=== PATIENT | male | born 2000 | race Caucasian/White ===

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

== ENCOUNTER 2019-05-16 16:30 | Emergency (ER) | payer OTHER ==
[~2019-05-16] VITALS: Ht 180.3 cm; Wt 54.4 kg
[2019-05-16 16:30] VITALS: BP 123/57
[2019-05-16] MEDS ORDERED: IV NORMAL SALINE 1,000ML 1,000 ML IV ONE (17:00)
[2019-05-16] MEDS ORDERED: ONDANSETRON PF 4 MG/2 ML VIAL. IV ONE (17:00)
--- NOTE | 2019-05-16 17:05 | PHYS DOC ---
Past History Past Medical History: Asthma, Migraines, Other (MIRLANDE LITTLE DO) Past Medical History: GERD (RYA NORRIS MD) Past Surgical History: Appendectomy (MIRLANDE LITTLE DO) Smoking: Less than 1pk/day Alcohol Use: None Drug Use: None (MIRLANDE LITTLE DO) Adult General Chief Complaint Chief Complaint: ABDOMINAL PAIN HPI HPI 18-year-old male presents with abdominal pain. Patient has intermittent right upper quadrant pain for the last 3 or 4 days. It started for no particular reason. It is a cramping sensation that is mild to moderate in intensity. The patient's has as reflux at baseline, but does not take any medications. He has noticed the pain is worse with eating. Most of the time when he vomits, there is just saliva and stomach acid. He had blood-tinged vomit twice. He denies fever or chills. He has no diarrhea. No one else in the house is sick. (MIRLANDE LITTLE DO) Review of Systems Review of Systems Constitutional: Denies fever or chills [] Eyes: Denies change in visual acuity, redness, or eye pain [] HENT: Denies nasal congestion or sore throat [] Respiratory: Denies cough or shortness of breath [] Cardiovascular: No additional information not addressed in HPI [] GI: Right upper quadrant abdominal pain, nausea, vomiting. Denies bloody stools or diarrhea [] : Denies dysuria or hematuria [] Musculoskeletal: Denies back pain or joint pain [] Integument: Denies rash or skin lesions [] Neurologic: Denies headache, focal weakness or sensory changes [] Endocrine: Denies polyuria or polydipsia [] All other systems were reviewed and found to be within normal limits, except as documented in this note. (MIRLANDE LITTLE DO) Family History Family History Multiple family members have had cholecystitis and removal of their gallbladders starting age 20's (RAY NORRIS MD) Current Medications Current Medications Current Medications Medications (Trade) Dose Ordered Sig/Elaine Start Time Stop Time Status Last Admin Dose Admin Ondansetron HCl (Zofran) 4 mg 1X ONCE 05/16/19 17:00 05/16/19 17:01 Sodium Chloride 1,000 ml @ 1,000 mls/hr 1X ONCE 05/16/19 17:00 05/16/19 17:59 (MIRLANDE LITTLE DO) Allergies Allergies Allergies Coded Allergies Type Severity Reaction Last Updated Verified fentanyl Allergy Unknown 05/12/18 Yes hydrocodone Allergy Unknown 05/12/18 Yes latex Allergy Unknown 05/12/18 Yes lidocaine Allergy Unknown 05/12/18 Yes morphine Allergy Unknown 05/12/18 Yes (MIRLANDE LITTLE DO) Physical Exam Physical Exam Constitutional: Well developed, well nourished, no acute distress, non-toxic appearance. [] HENT: Normocephalic, atraumatic, bilateral external ears normal, oropharynx moist, no oral exudates, nose normal. [] Eyes: PERRLA, EOMI, conjunctiva normal, no discharge. [] Neck: Normal range of motion, no tenderness, supple, no stridor. [] Cardiovascular:Heart rate regular rhythm, no murmur [] Lungs & Thorax: Bilateral breath sounds clear to auscultation [] Abdomen: Bowel sounds normal, soft, RUQ tenderness, no masses, no pulsatile masses. [] Skin: Warm, dry, no erythema, no rash. [] Back: No tenderness, no CVA tenderness. [] Extremities: No tenderness, no cyanosis, no clubbing, ROM intact, no edema. [] Neurologic: Alert and oriented X 3, normal motor function, normal sensory function, no focal deficits noted. [] Psychologic: Affect normal, judgement normal, mood normal. [] (MIRLANDE LITTLE DO) Physical Exam Reexam change- patient localizes pain to epigastric and right upper quadrant. Has rebound to right upper quadrant. Does have some radiation of pain to right shoulder blade. No psoas sign. (RAY NORRIS MD) Current Patient Data Vital Signs Vital Signs Date Time Temp Pulse Resp B/P (MAP) Pulse Ox O2 Delivery O2 Flow Rate FiO2 05/16/19 16:30 97 Room Air 05/16/19 16:30 98.8 80 20 (MIRLANDE LITTLE DO) EKG EKG [] (MIRLANDE LITTLE DO) Radiology/Procedures Radiology/Procedures [] (MIRLANDE LITTLE DO) Radiology/Procedures [address] [address] IMAGING REPORT Signed PATIENT: CATHERINE MALHOTRA ACCOUNT: [id number] : 2000 LOCATION: ER AGE: 18 SEX: M EXAM STATUS: REG ER ORD. PHYSICIAN: MIRLANDE LITTLE DO REASON: RUQ pain PROCEDURE: CT ABD PELV W/ IV CONTRST ONLY CT ABD PELV W/ IV CONTRST ONLY Indication: Right upper quadrant pain Technique: Postcontrast CT imaging was performed of the abdomen pelvis, multiplanar reconstruction images submitted. No oral contrast was given. One or more of the following individualized dose reduction techniques were utilized for this examination: 1. Automated exposure control 2. Adjustment of the mA and/or kV according to patient size 3. Use of iterative reconstruction technique. Comparison: August 25, 2010 Findings: There is no significant abnormality of the limited visualized lung bases. No focal abnormality is identified of the liver, pancreas, spleen. Gallbladder is present, circumferential wall enhancement and possible trace pericholecystic fluid. There is no adrenal nodularity. Both kidneys enhance, no hydronephrosis. Accurate evaluation of bowel is limited without oral contrast. Bowel is not considered significantly dilated. There is no free fluid or free air. There has been interval appendectomy. IMPRESSION: 1. There is nonspecific gallbladder wall enhancement and questionable trace pericholecystic fluid, could be seen with cholecystitis in the appropriate clinical setting. Electronically signed by: Jalyn Price MD (05/16/2019 6:07 PM) [facility] DICTATED AND SIGNED BY: JALYN PRICE MD DATE: 05/16/191806 (RAY NORRIS MD) Course & Med Decision Making Course & Med Decision Making Pertinent Labs and Imaging studies reviewed. (See chart for details) The patient's labs are unremarkable. His CT scan is pending. I have given him 4 mg of Zofran and saline. I'm signing the patient out to Dr. Norris at 1800. He will determine final disposition. [] (MIRLANDE LITTLE DO) Course & Med Decision Making Re-exam shift change. Pt. still having 7/10 epigastric and Rt. upper quadrant pain. Rebound to Rt. upper. Old surgery scar. Pt. declines rectal at this time. Pain off and on weeks. Much more severe to day after 'hot pocket pizza meal'. Does have some radiation to Rt shoulder blade. Pt. transfer to Dr. Gilmore at [facility]. Surgery consult for Cholecystitis. Discussed presentation, testing and tx plan with Dr. Gilmore and Dr. Ascencio. Impression: 1. Rt upper and epigastric abdomen pain 2. Cholecystitis (RAY NORRIS MD) Dragon Disclaimer Dragon Disclaimer This electronic medical record was generated, in whole or in part, using a voice recognition dictation system. (MIRLANDE LITTLE DO) Departure Departure: Referrals: MAGNO MCELROY (PCP) Discharge Summary Visit Information Final Diagnosis Problems Medical Problems: (1) Cholecystitis Status: Acute (2) Dyspnea Status: Acute (RAY NORRIS MD) Brief Hospital Course Allergies Allergies Coded Allergies Type Severity Reaction Last Updated Verified fentanyl Allergy Unknown 05/12/18 Yes hydrocodone Allergy Unknown 05/12/18 Yes latex Allergy Unknown 05/12/18 Yes lidocaine Allergy Unknown 05/12/18 Yes morphine Allergy Unknown 05/12/18 Yes Vital Signs Vital Signs Date Time Temp Pulse Resp B/P (MAP) Pulse Ox O2 Delivery O2 Flow Rate FiO2 05/16/19 16:30 97 Room Air 05/16/19 16:30 98.8 80 20 Lab Results Laboratory Tests Test 05/16/19 16:54 White Blood Count 7.5 x10^3/uL (4.0-11.0) Red Blood Count 4.59 x10^6/uL (4.30-5.70) Hemoglobin 13.8 g/dL (13.0-17.5) Hematocrit 40.9 % (39.0-53.0) Mean Corpuscular Volume 89 fL (79-100) Mean Corpuscular Hemoglobin 30 pg (25-35) Mean Corpuscular Hemoglobin Concent 34 g/dL (31-37) Red Cell Distribution Width 12.9 % (11.5-14.5) Platelet Count 249 x10^3/uL (140-400) Neutrophils (%) (Auto) 59 % (31-73) Lymphocytes (%) (Auto) 32 % (24-48) Monocytes (%) (Auto) 7 % (0-9) Eosinophils (%) (Auto) 1 % (0-3) Basophils (%) (Auto) 1 % (0-3) Neutrophils # (Auto) 4.4 x10^3uL (1.8-7.7) Lymphocytes # (Auto) 2.4 x10^3/uL (1.0-4.8) Monocytes # (Auto) 0.5 x10^3/uL (0.0-1.1) Eosinophils # (Auto) 0.1 x10^3/uL (0.0-0.7) Basophils # (Auto) 0.0 x10^3/uL (0.0-0.2) Prothrombin Time 11.1 SEC (9.4-11.4) Prothromb Time International Ratio 1.1 (0.9-1.1) Activated Partial Thromboplast Time 26 SEC (23-33) Sodium Level 140 mmol/L (136-145) Potassium Level 3.7 mmol/L (3.5-5.1) Chloride Level 104 mmol/L (98-107) Carbon Dioxide Level 28 mmol/L (21-32) Anion Gap 8 (6-14) Blood Urea Nitrogen 8 mg/dL (8-26) Creatinine 0.7 mg/dL (0.7-1.3) Estimated GFR (Cockcroft-Gault) 145.3 BUN/Creatinine Ratio 11 (6-20) Glucose Level 92 mg/dL (70-99) Calcium Level 8.9 mg/dL (8.5-10.1) Total Bilirubin 0.3 mg/dL (0.2-1.0) Aspartate Amino Transf (AST/SGOT) 21 U/L (15-37) Alanine Aminotransferase (ALT/SGPT) 44 U/L (16-63) Alkaline Phosphatase 73 U/L (46-116) Total Protein 7.2 g/dL (6.4-8.2) Albumin 4.2 g/dL (3.4-5.0) Albumin/Globulin Ratio 1.4 (1.0-1.7) Lipase 67 U/L (73-393) Brief Hospital Course Mr. Malhotra is a 18 old male who presented with cholecystitis. Transferred to [facility] under the care Dr. Gilmore and consult with Dr. Ascencio. (RAY NORRIS MD) Discharge Information Condition at Discharge: Stable Disposition/Orders: D/C to Another Facility Dischare Medications Current Medications Sodium Chloride 1,000 ml @ 1,000 mls/hr 1X ONCE IV Last administered on 05/16/19at 17:04; Start 05/16/19 at 17:00; Stop 05/16/19 at 17:59; Status DC Ondansetron HCl (Zofran) 4 mg 1X ONCE IV Last administered on 05/16/19at 17:03; Start 05/16/19 at 17:00; Stop 05/16/19 at 17:01; Status DC Iohexol (Omnipaque 300 Mg/ml) 75 ml 1X ONCE IV ; Start 05/16/19 at 17:30; Stop 05/16/19 at 17:31; Status DC Famotidine (Pepcid Vial) 20 mg 1X ONCE IVP Last administered on 05/16/19at 18:44; Start 05/16/19 at 18:45; Stop 05/16/19 at 18:46; Status DC Magnesium Hydroxide (Milk Of Magnesia) 2,400 mg 1X ONCE PO Last administered on 05/16/19 18:45; Start 05/16/19 at 18:45; Stop 05/16/19 at 18:46; Status DC Ketorolac Tromethamine (Toradol 30mg Vial) 30 mg 1X ONCE IV Last administered on 05/16/19at 18:44; Start 05/16/19 at 19:00; Stop 05/16/19 at 19:01; Status DC Ceftriaxone Sodium 1 gm/ Sodium Chloride 50 ml @ 100 mls/hr 1X ONCE IV Last administered on 05/16/19at 18:45; Start 05/16/19 at 18:30; Stop 05/16/19 at 18:59; Status DC Metronidazole 100 ml @ 100 mls/hr 1X ONCE IV Last administered on 05/16/19at 18:45; Start 05/16/19 at 18:30; Stop 05/16/19 at 19:29; Status DC Sodium Chloride 50 ml @ As Directed STK-MED ONCE .ROUTE ; Start 05/16/19 at 18:40; Stop 05/16/19 at 18:41; Status DC Ceftriaxone Sodium (Rocephin) 1 gm STK-MED ONCE .ROUTE ; Start 05/16/19 at 18:41; Stop 05/16/19 at 18:42; Status DC Active Scripts Active Valium (Diazepam) 5 Mg Tablet 5 Mg PO TID Percocet 5-325 Mg Tablet (Oxycodone Hcl/Acetaminophen) 1 Each Tablet 1 Each PO QID Zofran Odt (Ondansetron) 8 Mg Tab.rapdis 8 Mg PO QIDPRN PRN Zofran Odt (Ondansetron) 4 Mg Tab.rapdis 4 Mg PO Q6HRS (RAY NORRIS MD) Dragon Disclaimer This chart was dictated in whole or in part using Voice Recognition software in a busy, high-work load, and often noisy Emergency Department environment. It may contain unintended and wholly unrecognized errors or omissions. (RAY NORRIS MD) MIRLANDE LITTLE DO May 16, 2019 17:05 RAY NORRIS MD May 16, 2019 18:15
[2019-05-16 17:13] LABS: BASO % 1 % (0-3); EOS # 0.1 x10^3/uL (0.0-0.7); EOS % 1 % (0-3); HEMATOCRIT 40.9 % (39.0-53.0); HEMOGLOBIN 13.8 g/dL (13.0-17.5); LYMPH # 2.4 x10^3/uL (1.0-4.8); LYMPH % 32 % (24-48); MEAN CORPUSCULAR HEMOGLOBIN 30 pg (25-35); MEAN CORPUSCULAR HGB CONC 34 g/dL (31-37); MEAN CORPUSCULAR VOLUME 89 fL (79-100); MONO # 0.5 x10^3/uL (0.0-1.1); MONO % 7 % (0-9); NEUT # 4.4 x10^3uL (1.8-7.7); NEUT % 59 % (31-73); PLATELET COUNT 249 x10^3/uL (140-400); RED BLOOD COUNT 4.59 x10^6/uL (4.30-5.70); RED CELL DISTRIBUTION WIDTH 12.9 % (11.5-14.5); WHITE BLOOD COUNT 7.5 x10^3/uL (4.0-11.0)
[2019-05-16 17:21] LABS: ALBUMIN 4.2 g/dL (3.4-5.0); ALBUMIN/GLOBULIN RATIO 1.4 (1.0-1.7); CALCIUM 8.9 mg/dL (8.5-10.1); CREATININE 0.7 mg/dL (0.7-1.3); GFR 145.3; POTASSIUM 3.7 mmol/L (3.5-5.1); TOTAL BILIRUBIN 0.3 mg/dL (0.2-1.0); TOTAL PROTEIN 7.2 g/dL (6.4-8.2)
[2019-05-16] MEDS ORDERED: IOHEXOL 300 MG/ML 75 ML VIAL. IV ONE (17:30)
--- NOTE | 2019-05-16 18:09 | RAD ---
CT ABD PELV W/ IV CONTRST ONLY Indication: Right upper quadrant pain Technique: Postcontrast CT imaging was performed of the abdomen pelvis, multiplanar reconstruction images submitted. No oral contrast was given. One or more of the following individualized dose reduction techniques were utilized for this examination: 1. Automated exposure control 2. Adjustment of the mA and/or kV according to patient size 3. Use of iterative reconstruction technique. Comparison: August 25, 2010 Findings: There is no significant abnormality of the limited visualized lung bases. No focal abnormality is identified of the liver, pancreas, spleen. Gallbladder is present, circumferential wall enhancement and possible trace pericholecystic fluid. There is no adrenal nodularity. Both kidneys enhance, no hydronephrosis. Accurate evaluation of bowel is limited without oral contrast. Bowel is not considered significantly dilated. There is no free fluid or free air. There has been interval appendectomy. IMPRESSION: 1. There is nonspecific gallbladder wall enhancement and questionable trace pericholecystic fluid, could be seen with cholecystitis in the appropriate clinical setting. Electronically signed by: Salas Price MD (05/16/2019 6:07 PM) [facility]
[2019-05-16] MEDS ORDERED: IV NORMAL SALINE 50ML 50 ML ONE (18:40)
[2019-05-16] MEDS ORDERED: cefTRIAXone SODIUM 1 GM VIAL ONE (18:41)
[2019-05-16] MEDS ORDERED: FAMOTIDINE 20 MG/2 ML VIAL IVP ONE (18:45)
[2019-05-16] MEDS ORDERED: MAGNESIUM HYDROXIDE 2,400 MG/30 ML ORAL.SUSP. PO ONE (18:45)
[2019-05-16] MEDS ORDERED: KETOROLAC 30 MG/ML VIAL. IV ONE (19:00)
--- NOTE | 2019-05-16 19:30 | RAD ---
ACUTE ABDOMEN SERIES History: Cholecystitis, shortness of breath Comparison: June 03, 2012 abdomen radiographs and October 20, 2018 chest radiograph Findings: Single supine and single upright AP views of abdomen and single view of the chest are submitted. There is no infiltrate, pleural fluid, pneumothorax. Heart size is stable. No free air is identified. There is an overall nonobstructive bowel gas pattern. There is contrast in the urinary bladder and right renal collecting system. Impression: 1. There is an overall nonobstructive bowel gas pattern. Electronically signed by: Salas Price MD (05/16/2019 7:27 PM) [facility]
== END 2019-05-16 19:35 | disposition short-term general hospital (02) ==
LOC: ER 16:30
DX: K81.9 Cholecystitis, unspecified (principal); R06.00 Dyspnea, unspecified; R11.2 Nausea with vomiting, unspecified; K21.9 Gastro-esophageal reflux disease without esophagitis; F17.200 Nicotine dependence, unspecified, uncomplicated; Z90.49 Acquired absence of other specified parts of digestive tract; Z88.5 Allergy status to narcotic agent; Z91.040 Latex allergy status; Z88.4 Allergy status to anesthetic agent; Z88.8 Allergy status to other drugs, medicaments and biological substances
CPT/HCPCS: 36415; 74022; 74177; 80053; 83690; 85025; 85610; 85730; 96361; 96365; 96375; 99285; J0696; J1885; J2405; J3490; J7030

== ENCOUNTER 2019-07-05 13:25 | Emergency (ER) | payer OTHER ==
[2019-07-05 13:47] VITALS: BP 123/69
[2019-07-05] MEDS ORDERED: DICL50TA4 PO (14:35)
--- NOTE | 2019-07-05 14:35 | PHYS DOC ---
Past History Past Medical History: Stroke Past Surgical History: Appendectomy, Cholecystectomy Smoking: Less than 1pk/day Alcohol Use: None Drug Use: None Adult General Chief Complaint Chief Complaint: FOOT INJURY PAIN [facility] HPI Patient is a 18-year-old male who presents with complaint of right foot pain after he stepped on a [place] earlier this afternoon. Patient states that when he stepped on the [place] that he jumped and landed on his foot causing pain. He indicates that he has fractured his fifth metatarsal in the past. He rates pain as moderate and states the pain is worsened with weightbearing. He states that injury occurred this morning.[] Review of Systems Review of Systems Constitutional: Denies fever or chills [] Respiratory: Denies cough or shortness of breath [] Cardiovascular: No additional information not addressed in HPI [] Musculoskeletal: Positive right foot pain [] Integument: Denies rash or skin lesions [] Allergies Allergies Allergies Coded Allergies Type Severity Reaction Last Updated Verified fentanyl Allergy Unknown 05/12/18 Yes hydrocodone Allergy Unknown 05/12/18 Yes latex Allergy Unknown 05/12/18 Yes lidocaine Allergy Unknown 05/12/18 Yes morphine Allergy Unknown 05/12/18 Yes Physical Exam Physical Exam Constitutional: Well developed, well nourished, no acute distress, non-toxic appearance. [] Cardiovascular:Heart rate regular rhythm, no murmur [] Lungs & Thorax: Bilateral breath sounds clear to auscultation [] Extremities: Examination of right foot demonstrates tenderness to palpation around the mid to proximal fifth metatarsal with very mild soft tissue swelling present. [] Current Patient Data Vital Signs Vital Signs Date Time Temp Pulse Resp B/P (MAP) Pulse Ox O2 Delivery O2 Flow Rate FiO2 07/05/19 13:47 98.2 84 18 98 Room Air EKG EKG [] Radiology/Procedures Radiology/Procedures [] Impressions: PROCEDURE: FOOT RIGHT 3V FOOT RIGHT 3V DATE: 07/05/2019 2:16 PM INDICATION: Foot injury COMPARISON: 06/01/2018. FINDINGS: Bones: There is no evidence of acute fracture or dislocation. Remote healed fifth metatarsal fracture. Joints: The joint spaces are normal. Miscellaneous: No focal soft tissue swelling. IMPRESSION: No evidence of acute fracture. Electronically signed by: Salas Narayan MD (07/05/2019 2:37 PM) [facility] Course & Med Decision Making Course & Med Decision Making Pertinent Labs and Imaging studies reviewed. (See chart for details) [] Dragon Disclaimer Dragon Disclaimer This electronic medical record was generated, in whole or in part, using a voice recognition dictation system. Departure Departure: Impression: Primary Impression: Foot sprain Disposition: HOME, SELF-CARE Condition: STABLE Referrals: MAGNO MCELROY (PCP) Patient Instructions: Foot Sprain Scripts Diclofenac Sodium (DICLOFENAC SODIUM) 50 Mg Tablet.dr 1 TAB PO BID PRN for PAIN, #20 TAB Prov: OTONIEL DAVISON Jr. DO 07/05/19 Problem Qualifiers Primary Impression: Foot sprain Encounter type: initial encounter Laterality: right Qualified Codes: S93.601A - Unspecified sprain of right foot, initial encounter OTONIEL DAVISON Jr. DO Jul 05, 2019 14:35
--- NOTE | 2019-07-05 14:40 | RAD ---
FOOT RIGHT 3V DATE: 07/05/2019 2:16 PM INDICATION: Foot injury COMPARISON: 06/01/2018. FINDINGS: Bones: There is no evidence of acute fracture or dislocation. Remote healed fifth metatarsal fracture. Joints: The joint spaces are normal. Miscellaneous: No focal soft tissue swelling. IMPRESSION: No evidence of acute fracture. Electronically signed by: Salas Narayan MD (07/05/2019 2:37 PM) [id number]
== END 2019-07-05 14:42 | disposition home or self-care (01) ==
LOC: ER 13:25
DX: S93.601A Unspecified sprain of right foot, initial encounter (principal); F17.200 Nicotine dependence, unspecified, uncomplicated; Z86.73 Personal history of transient ischemic attack (TIA), and cerebral infarction without residual deficits; Z88.5 Allergy status to narcotic agent; Z88.4 Allergy status to anesthetic agent; Z88.8 Allergy status to other drugs, medicaments and biological substances; Z91.040 Latex allergy status; W22.8XXA Striking against or struck by other objects, initial encounter; Y93.89 Activity, other specified; Y92.89 Other specified places as the place of occurrence of the external cause; Y99.8 Other external cause status
CPT/HCPCS: 73630; 99284

== ENCOUNTER 2019-08-05 19:45 | Emergency (ER) | payer OTHER ==
[~2019-08-05] VITALS: Ht 180.3 cm; Wt 61.2 kg
[~2019-08-05 19:45] MED LIST changes: +DICL50TA4 PO
[2019-08-05] MEDS: IV NORMAL SALINE 1,000ML 1,000 ML IV ONE (20:44)
--- NOTE | 2019-08-05 21:32 | PHYS DOC ---
Past History Past Medical History: Migraines, TIA Past Surgical History: Appendectomy, Cholecystectomy Smoking: Less than 1pk/day Additional Smoking Information: 1/2 TO PACK/DAY Alcohol Use: None Drug Use: None Adult General Chief Complaint Chief Complaint: HEADACHE HPI HPI Patient is a 18 year old male who presents with complaint of migraine headache. Patient notes that his symptoms started approximately one week ago and have been continuous since onset. States he has been taking Excedrin Migraine at home with no significant relief in symptoms. Notes nausea and light sensitivity. Notes that the headache is frontal. Denies any associated unilateral weakness, vision loss, or difficulty with speech or swallowing. States that he frequently has migraine headaches and has been in the emergency department in the past. States that he has received a "cocktail" for treatment of his symptoms which typically includes Benadryl and this has helped him in the past. Denies any unusual symptoms associated with this headache currently.[] Review of Systems Review of Systems Constitutional: Denies fever or chills [] Eyes: Denies change in visual acuity, redness, or eye pain [] HENT: Photophobia, denies nasal congestion or sore throat [] Respiratory: Denies cough or shortness of breath [] Cardiovascular: Denies chest pain or edema[] GI: Nausea, denies abdominal pain, bloody stools or diarrhea [] : Denies dysuria or hematuria [] Musculoskeletal: Denies back pain or joint pain [] Integument: Denies rash or skin lesions [] Neurologic: Headache, denies focal weakness or sensory changes [] All other systems were reviewed and found to be within normal limits, except as documented in this note. Current Medications Current Medications Current Medications Medications (Trade) Dose Ordered Sig/Elaine Start Time Stop Time Status Last Admin Dose Admin Sodium Chloride 1,000 ml @ 1,000 mls/hr 1X ONCE 08/05/19 20:45 08/05/19 21:44 08/05/19 20:44 1,000 MLS/HR Allergies Allergies Allergies Coded Allergies Type Severity Reaction Last Updated Verified fentanyl Allergy Unknown 05/12/18 Yes hydrocodone Allergy Unknown 05/12/18 Yes latex Allergy Unknown 05/12/18 Yes lidocaine Allergy Unknown 05/12/18 Yes morphine Allergy Unknown 05/12/18 Yes Physical Exam Physical Exam Constitutional: Alert, afebrile, appears mild to moderate discomfort. [] HENT: Normocephalic, atraumatic, bilateral external ears normal, oropharynx moist, no oral exudates, nose normal. [] Eyes: PERRLA, EOMI, photophobia present, conjunctiva normal, no discharge. [] Neck: Normal range of motion, no tenderness, supple, no stridor. [] Cardiovascular:Heart rate regular rhythm, no murmur [] Lungs & Thorax: Bilateral breath sounds clear to auscultation [] Abdomen: Bowel sounds normal, soft, no tenderness, no masses, no pulsatile masses. [] Skin: Warm, dry, no erythema, no rash. [] Back: No tenderness, no CVA tenderness. [] Extremities: No tenderness, no cyanosis, no clubbing, ROM intact, no edema. [] Neurologic: Alert and oriented X 3, normal motor function, normal sensory function, no focal deficits noted. [] Current Patient Data Vital Signs Vital Signs Date Time Temp Pulse Resp B/P (MAP) Pulse Ox O2 Delivery O2 Flow Rate FiO2 08/05/19 19:50 98.6 84 20 99 Room Air Lab Results Not performed EKG EKG Not performed[] Radiology/Procedures Radiology/Procedures Not performed[] Course & Med Decision Making Course & Med Decision Making Pertinent Labs and Imaging studies reviewed. (See chart for details) Patient was treated with IV fluids, Toradol, Compazine, and Benadryl in the emergency department. Patient states his headache symptoms have resolved and he would like to go home at this time. Prescribed Fioricet and Zofran for treatment of headaches as needed and referred patient to Dr. Mak of neurology for outpatient follow-up in 5-7 days. Advised return to emergency department for any worsening symptoms. Patient was understanding and in agreement with treatment plan. Dragon Disclaimer Dragon Disclaimer This electronic medical record was generated, in whole or in part, using a voice recognition dictation system. Departure Departure: Impression: Primary Impression: Migraine headache Disposition: HOME, SELF-CARE Condition: IMPROVED Referrals: PCP,UNKNOWN (PCP) JADA MAK MD Patient Instructions: Migraine Headache Additional Instructions: Follow-up with Dr. Mak of neurology in the next 5-7 days for further evaluation of your migraine headaches. Return to the emergency department for any worsening symptoms. Scripts Ondansetron (ONDANSETRON ODT) 4 Mg Tab.rapdis 1 TAB PO PRN Q6-8HRS PRN for NAUSEA/VOMITING, #16 TAB Prov: FAISAL DURAN MD 08/05/19 Butalb/Acetaminophen/Caffeine ([id number] 50-325-40) 1 Each Tablet 1-2 EACH PO Q4-6HRS PRN for HEADACHE, #30 TAB Prov: FAISAL DURAN MD 08/05/19 Problem Qualifiers Primary Impression: Migraine headache Migraine type: unspecified Status migrainosus presence: with status migrainosus Intractability: not intractable Qualified Codes: G43.901 - Migraine, unspecified, not intractable, with status migrainosus FAISAL DURAN MD Aug 05, 2019 21:32
[2019-08-05] MEDS ORDERED: diphenhydrAMINE 50 MG/ML VIAL ONE (21:39)
[2019-08-05] MEDS ORDERED: PROCHLORPERAZINE 10 MG/2 ML VIAL. ONE (21:39)
[2019-08-05] MEDS ORDERED: KETOROLAC 30 MG/ML VIAL. ONE (21:39)
[2019-08-05] MEDS: diphenhydrAMINE 50 MG/ML VIAL IVP ONE (21:42)
[2019-08-05] MEDS: PROCHLORPERAZINE 10 MG/2 ML VIAL. IV ONE (21:43)
[2019-08-05] MEDS: KETOROLAC 30 MG/ML VIAL. IV ONE (21:46)
[2019-08-05 21:54] VITALS: BP 133/77
[2019-08-05] MEDS ORDERED: ONDA4TAB12 PO (22:20)
[2019-08-05] MEDS ORDERED: BUTA1TAB23 PO (22:20)
== END 2019-08-05 22:31 | disposition home or self-care (01) ==
LOC: ER 19:45
DX: G43.901 Migraine, unspecified, not intractable, with status migrainosus (principal); F17.200 Nicotine dependence, unspecified, uncomplicated; Z86.73 Personal history of transient ischemic attack (TIA), and cerebral infarction without residual deficits; Z88.5 Allergy status to narcotic agent; Z88.4 Allergy status to anesthetic agent; Z88.8 Allergy status to other drugs, medicaments and biological substances
CPT/HCPCS: 96374; 96375; 99284; J0780; J1200; J1885; J7030

== ENCOUNTER 2019-09-12 21:39 | Emergency (ER) | payer OTHER ==
[~2019-09-12 21:39] MED LIST changes: +BUTA1TAB23 PO; +ONDA4TAB12 PO
--- NOTE | 2019-09-12 21:41 | ED.ADGEN ---
Past History Past Medical History: Migraines, TIA Past Surgical History: Appendectomy, Cholecystectomy Smoking: Less than 1pk/day Alcohol Use: None Drug Use: None Adult General Chief Complaint Chief Complaint ". It ricci really bad when I pee... " HPI HPI Patient is a 18 year old male who presents with above hx and complaints dysuria. Hx of unprotected sex on 10/10. Pt. practice of rectal, oral and vagina. No prior hx STD. Pt. reports no history of prior problems with her primary tract infections. Patient history immunosuppression. No recent travel. No ascitic ill contacts. Review of Systems Review of Systems Constitutional: Denies fever or chills [] Eyes: Denies change in visual acuity, redness, or eye pain [] HENT: Denies nasal congestion or sore throat [] Respiratory: Denies cough or shortness of breath [] Cardiovascular: No additional information not addressed in HPI [] GI: Denies abdominal pain, nausea, vomiting, bloody stools or diarrhea [] : History of very painful dysuria Musculoskeletal: Denies back pain or joint pain [] Integument: Denies rash or skin lesions [] Neurologic: Denies headache, focal weakness or sensory changes [] Endocrine: Denies polyuria or polydipsia [] All other systems were reviewed and found to be within normal limits, except as documented in this note. Family History Family History Noncontributory Current Medications Current Medications Current Medications Medications (Trade) Dose Ordered Sig/Elaine Start Time Stop Time Status Last Admin Dose Admin Azithromycin (Zithromax) 1,000 mg 1X ONCE 09/12/19 22:15 09/12/19 22:47 DC 09/12/19 22:44 1,000 MG Ceftriaxone Sodium (Rocephin Im) 1 gm 1X ONCE 09/12/19 22:15 09/12/19 22:47 DC 09/12/19 22:42 1 GM Ceftriaxone Sodium (Rocephin) 1 gm STK-MED ONCE 09/12/19 22:48 09/12/19 22:48 DC Lidocaine HCl 20 ml STK-MED ONCE 09/12/19 22:50 09/12/19 22:50 DC Metronidazole (Flagyl) 500 mg STK-MED ONCE 09/12/19 22:47 09/12/19 22:48 DC Ondansetron HCl (Zofran Odt) 4 mg STK-MED ONCE 09/12/19 22:48 09/12/19 22:48 DC Allergies Allergies Allergies Coded Allergies Type Severity Reaction Last Updated Verified fentanyl Allergy Unknown 05/12/18 Yes hydrocodone Allergy Unknown 05/12/18 Yes latex Allergy Unknown 05/12/18 Yes lidocaine Allergy Unknown 05/12/18 Yes morphine Allergy Unknown 05/12/18 Yes Physical Exam Physical Exam Constitutional: Well developed, well nourished, moderate acute distress, non- toxic appearance. [] HENT: Normocephalic, atraumatic, bilateral external ears normal, oropharynx moist, no oral exudates, nose normal. [] Eyes: PERRLA, EOMI, conjunctiva normal, no discharge. [] Neck: Normal range of motion, no tenderness, supple, no stridor. [] Cardiovascular:Heart rate regular rhythm, no murmur [] Lungs & Thorax: Bilateral breath sounds equal apex with scattered wheezes on auscultation [] Abdomen: Bowel sounds normal, soft, no tenderness, no masses, no pulsatile masses. [] Circumcised male. Testicles descended. Has obvious erythemic me at this. Mild tenderness at suprapubic groin area. Patient declines rectal or prostate exam at this time. Old surgery scars. Skin: Warm, dry, no erythema, no rash. [] Back: No tenderness, no CVA tenderness. [] Extremities: No tenderness, no cyanosis, no clubbing, ROM intact, no edema. [] Neurologic: Alert and oriented X 3, normal motor function, normal sensory function, no focal deficits noted. [] Psychologic: Affect normal, judgement normal, mood normal. [] Current Patient Data Lab Results Laboratory Tests Test 09/12/19 21:54 Urine Collection Type Unknown Urine Color Yellow Urine Clarity Clear Urine pH 6.0 Urine Specific [place] 1.025 Urine Protein Neg (NEG-TRACE) Urine Glucose (UA) Neg mg/dL (NEG) Urine Ketones (Stick) Neg mg/dL (NEG) Urine Blood Neg (NEG) Urine Nitrite Neg (NEG) Urine Bilirubin Neg (NEG) Urine Urobilinogen Dipstick 1 mg/dL (0.2 mg/dL) Urine Leukocyte Esterase Neg (NEG) Urine RBC 0 /HPF (0-2) Urine WBC 0 /HPF (0-4) Urine Bacteria 0 /HPF (0-FEW) EKG EKG [] Radiology/Procedures Radiology/Procedures [] Course & Med Decision Making Course & Med Decision Making Pertinent Labs and Imaging studies reviewed. (See chart for details) Patient take Keflex 500 mg 3 times a day for 10 days. Patient follow up urine cultures. Patient follow-up lab results. Patient practice safe sex. Patient informed partner possible STD. Patient return if any concerns. Patient follow- up primary care. [] Final Impression Final Impression 1. Dysuria 2. Urethritis[]-suspect STD. 3. Tobacco Use Dragon Disclaimer Dragon Disclaimer This electronic medical record was generated, in whole or in part, using a voice recognition dictation system. Dragon Disclaimer This chart was dictated in whole or in part using Voice Recognition software in a busy, high-work load, and often noisy Emergency Department environment. It may contain unintended and wholly unrecognized errors or omissions. Dragon Disclaimer This chart was dictated in whole or in part using Voice Recognition software in a busy, high-work load, and often noisy Emergency Department environment. It may contain unintended and wholly unrecognized errors or omissions. RAY DARLING MD Sep 12, 2019 21:41
[2019-09-12 22:15] LABS: BACTERIA,URINE 0 /HPF (0-FEW); BILIRUBIN,URINE NEG (NEG); CLARITY,URINE CLEAR; COLOR,URINE YELLOW; GLUCOSE,URINE NEG (NEG); NITRITE,URINE NEG (NEG); RBC,URINE 0 /HPF (0-2); UROBILINOGEN,URINE 1 mg/dL (0.2 mg/dL); WBC,URINE 0 /HPF (0-4)
[2019-09-12] MEDS ORDERED: AZITHROMYCIN 250 MG TABLET. PO ONE (22:15)
[2019-09-12] MEDS ORDERED: ONDANSETRON ODT 4 MG TAB.RAPDIS PO ONE (22:15)
[2019-09-12] MEDS ORDERED: cefTRIAXone IM 1 GM VIAL IM ONE (22:15)
[2019-09-12] MEDS ORDERED: metroNIDAZOLE 500 MG TABLET PO ONE (22:15)
[2019-09-12] MEDS ORDERED: CEPH-264 PO (22:18)
[2019-09-12] MEDS ORDERED: cefTRIAXone SODIUM 1 GM VIAL ONE ×2 (22:30→22:48)
[2019-09-12] MEDS ORDERED: metroNIDAZOLE 500 MG TABLET ONE (22:47)
[2019-09-12] MEDS ORDERED: ONDANSETRON ODT 4 MG TAB.RAPDIS ONE (22:48)
[2019-09-12] MEDS ORDERED: LIDOCAINE 1% Multi-Dose 20 ML VIAL. ONE (22:50)
== END 2019-09-12 23:25 | disposition home or self-care (01) ==
LOC: ER 21:39
DX: N34.2 Other urethritis (principal); R30.0 Dysuria; G43.909 Migraine, unspecified, not intractable, without status migrainosus; F17.200 Nicotine dependence, unspecified, uncomplicated; Z86.73 Personal history of transient ischemic attack (TIA), and cerebral infarction without residual deficits; Z88.8 Allergy status to other drugs, medicaments and biological substances; Z88.5 Allergy status to narcotic agent; Z91.040 Latex allergy status; Z88.4 Allergy status to anesthetic agent
CPT/HCPCS: 36415; 81001; 86592; 86703; 87491; 87591; 96372; 99284; J0456; J0696; Q0162

== ENCOUNTER 2019-10-15 16:18 | Emergency (ER) | payer OTHER ==
[~2019-10-15] VITALS: Ht 180.3 cm; Wt 63.5 kg
[~2019-10-15 16:18] MED LIST changes: +CEPH-264 PO
[2019-10-15 16:25] VITALS: BP 143/83
[2019-10-15] MEDS ORDERED: IV NORMAL SALINE 1,000ML 1,000 ML IV SCH (16:34)
--- NOTE | 2019-10-15 16:51 | PHYS DOC ---
Past History Past Medical History: IBS, Kidney Stones, Migraines, TIA, Other Additional Past Medical Histor: GASTRIC ULCERS Past Surgical History: Appendectomy, Cholecystectomy Smoking: Less than 1pk/day Additional Smoking Information: 1/2 PACK/DAY Alcohol Use: None Drug Use: None Adult General Chief Complaint Chief Complaint: FLANK PAIN HPI HPI Patient is a 18-year-old male who presents to the emergency department for evaluation. He states that last night he had the onset of right-sided flank pain, radiating around to the anterior abdomen, which is typical of his prior kidney stones. He has had some intermittent nausea and diarrhea, but he states that is chronic for him as he has IBS, and not associated with his abdominal or flank pain. He reports some intermittent hematuria, but denies any dysuria, urinary frequency, hesitancy, or testicular or genital pain. He has not had any fevers or chills. There are no alleviating or exacerbating factors to his symptoms. He denies any for pain medication at this time. Review of Systems Review of Systems Constitutional: Denies fever or chills [] Eyes: Denies change in visual acuity, redness, or eye pain [] HENT: Denies nasal congestion or sore throat [] Respiratory: Denies cough or shortness of breath [] Cardiovascular:The patient denies any shortness of breath, chest pain, palpitations, or orthopnea [] GI: No additional information not addressed in HPI [] : Denies dysuria. [] Musculoskeletal: Denies back pain or joint pain [] Integument: Denies rash or skin lesions [] Neurologic: Denies headache, focal weakness or sensory changes [] Endocrine: Denies polyuria or polydipsia [] All other systems were reviewed and found to be within normal limits, except as documented in this note. Current Medications Current Medications Current Medications Medications (Trade) Dose Ordered Sig/Elaine Start Time Stop Time Status Last Admin Dose Admin Sodium Chloride 1,000 ml @ 1,000 mls/hr Q1H 10/15/19 16:34 10/15/19 17:33 Allergies Allergies Allergies Coded Allergies Type Severity Reaction Last Updated Verified fentanyl Allergy Unknown 05/12/18 Yes hydrocodone Allergy Unknown 05/12/18 Yes latex Allergy Unknown 05/12/18 Yes lidocaine Allergy Unknown 05/12/18 Yes morphine Allergy Unknown 05/12/18 Yes Physical Exam Physical Exam PHYSICAL EXAM: CONSTITUTIONAL: Well developed, well nourished HEAD: normocephalic, atraumatic EENT: PERRL, EOMI. Conjunctivae normal color, sclerae non-icteric; moist mucous membranes. NECK: Supple, non-tender; no meningismus. LUNGS: Lungs CTA, breathing even and unlabored. Normal air movement. HEART: Regular rate and rhythm, no murmur CHEST: No deformity; non-tender ABDOMEN: The abdomen is soft, there is mild tenderness to palpation diffusely in the right abdomen, without rebound or guarding, the remainder of the abdomen is soft non-tender, no masses or bruits. EXTREM: Normal ROM; no deformity, no calf tenderness. Normal pulses palpable in all extremities. There is no pedal edema. SKIN: No rash; no diaphoresis NEURO: Alert; normal speech and cognition; CN's grossly intact; strength grossly intact without focal deficit. BACK: There is mild right-sided CVA TTP. Current Patient Data Vital Signs Vital Signs Date Time Temp Pulse Resp B/P (MAP) Pulse Ox O2 Delivery O2 Flow Rate FiO2 10/15/19 16:25 97.7 76 20 100 Room Air Lab Results Laboratory Tests Test 10/15/19 16:25 10/15/19 16:50 Urine Collection Type Unknown Urine Color Yellow Urine Clarity Clear Urine pH 6.0 Urine Specific [place] 1.025 Urine Protein Neg Urine Glucose (UA) Neg mg/dL Urine Ketones (Stick) Neg mg/dL Urine Blood Neg Urine Nitrite Neg Urine Bilirubin Neg Urine Urobilinogen Dipstick 0.2 mg/dL Urine Leukocyte Esterase Neg Urine RBC Occ /HPF Urine WBC Occ /HPF Urine Squamous Epithelial Cells Occ /LPF Urine Bacteria 0 /HPF White Blood Count 6.7 x10^3/uL Red Blood Count 4.78 x10^6/uL Hemoglobin 14.2 g/dL Hematocrit 42.7 % Mean Corpuscular Volume 89 fL Mean Corpuscular Hemoglobin 30 pg Mean Corpuscular Hemoglobin Concent 33 g/dL Red Cell Distribution Width 13.0 % Platelet Count 247 x10^3/uL Neutrophils (%) (Auto) 50 % Lymphocytes (%) (Auto) 37 % Monocytes (%) (Auto) 9 % Eosinophils (%) (Auto) 4 % Basophils (%) (Auto) 1 % Neutrophils # (Auto) 3.3 x10^3uL Lymphocytes # (Auto) 2.5 x10^3/uL Monocytes # (Auto) 0.6 x10^3/uL Eosinophils # (Auto) 0.3 x10^3/uL Basophils # (Auto) 0.1 x10^3/uL Sodium Level 141 mmol/L Potassium Level 3.7 mmol/L Chloride Level 103 mmol/L Carbon Dioxide Level 28 mmol/L Anion Gap 10 Blood Urea Nitrogen 7 mg/dL Creatinine 0.8 mg/dL Estimated GFR (Cockcroft-Gault) 124.5 BUN/Creatinine Ratio 9 Glucose Level 101 mg/dL Calcium Level 8.5 mg/dL Total Bilirubin 0.2 mg/dL Aspartate Amino Transf (AST/SGOT) 16 U/L Alanine Aminotransferase (ALT/SGPT) 27 U/L Alkaline Phosphatase 89 U/L Total Protein 7.5 g/dL Albumin 4.3 g/dL Albumin/Globulin Ratio 1.3 Lipase 76 U/L Current Medications Medications (Trade) Dose Ordered Sig/Elaine Route PRN Reason Start Time Stop Time Status Last Admin Dose Admin Sodium Chloride 1,000 ml @ 1,000 mls/hr Q1H IV 10/15/19 16:34 10/15/19 17:33 10/15/19 17:09 EKG EKG [] Radiology/Procedures Radiology/Procedures PROCEDURE: CT ABDOMEN PELVIS WO CONTRAST Exam: CT abdomen and pelvis without contrast INDICATION: Right flank pain TECHNIQUE: Sequential axial images through the abdomen and pelvis obtained without IV contrast. Sagittal and coronal reformatted images were reconstructed from the axial data and reviewed. Comparisons: Right flank pain FINDINGS: Heart size is normal. No pericardial effusion. Visualized lung bases are clear. No pleural effusion. Liver, spleen, pancreas and adrenals are unremarkable. Gallbladder surgically absent. No perinephric inflammation or hydronephrosis. No renal or ureteral calculi are identified. Bladder is decompressed not well evaluated. Prostate is not enlarged. Large and small bowel are unremarkable. Appendix is normal. No free intra-abdominal air or fluid. No obstruction. Abdominal aorta has normal course and caliber. No enlarged abdominal lymph nodes. No suspicious osseous lesions or acute fractures. IMPRESSION: 1. No renal or ureteral calculi. No evidence for obstructive uropathy. 2. Surgical changes likely related to appendectomy. Appendix is not identified. 3. No acute process identified in the abdomen or pelvis.[] Course & Med Decision Making Course & Med Decision Making Pertinent Labs and Imaging studies reviewed. (See chart for details) []Patient remains stable. I discussed test results, the need for close follow- up, and return precautions. Dragon Disclaimer Dragon Disclaimer This electronic medical record was generated, in whole or in part, using a voice recognition dictation system. Departure Departure: Impression: Primary Impression: Flank pain Additional Impression: Abdominal pain Disposition: HOME, SELF-CARE Condition: STABLE Referrals: PCP,UNKNOWN (PCP) Patient Instructions: Abdominal Pain, Flank Pain Additional Instructions: Ibuprofen 400-600 mg every 6 hours may help improve your symptoms. Applying a heating pad to the affected area may help improve your symptoms. Problem Qualifiers PRIMO CURTIS MD Oct 15, 2019 16:51
--- NOTE | 2019-10-15 17:02 | RAD ---
Exam: CT abdomen and pelvis without contrast INDICATION: Right flank pain TECHNIQUE: Sequential axial images through the abdomen and pelvis obtained without IV contrast. Sagittal and coronal reformatted images were reconstructed from the axial data and reviewed. Comparisons: Right flank pain FINDINGS: Heart size is normal. No pericardial effusion. Visualized lung bases are clear. No pleural effusion. Liver, spleen, pancreas and adrenals are unremarkable. Gallbladder surgically absent. No perinephric inflammation or hydronephrosis. No renal or ureteral calculi are identified. Bladder is decompressed not well evaluated. Prostate is not enlarged. Large and small bowel are unremarkable. Appendix is normal. No free intra-abdominal air or fluid. No obstruction. Abdominal aorta has normal course and caliber. No enlarged abdominal lymph nodes. No suspicious osseous lesions or acute fractures. IMPRESSION: 1. No renal or ureteral calculi. No evidence for obstructive uropathy. 2. Surgical changes likely related to appendectomy. Appendix is not identified. 3. No acute process identified in the abdomen or pelvis. Exposure: One or more of the following in the visualized dose reduction techniques were utilized for this examination: 1. Automated exposure control 2. Adjustment of the MA and/or KV according to patient size 3. Use of iterative of reconstructive technique Electronically signed by: Anastasia Chou MD (10/15/2019 4:59 PM) [id number]
[2019-10-15 17:10] LABS: BACTERIA,URINE 0 /HPF (0-FEW); BILIRUBIN,URINE NEG (NEG); CLARITY,URINE CLEAR; COLOR,URINE YELLOW; GLUCOSE,URINE NEG (NEG); NITRITE,URINE NEG (NEG); RBC,URINE OCC /HPF (0-2); UROBILINOGEN,URINE 0.2 mg/dL (0.2 mg/dL); WBC,URINE OCC /HPF (0-4)
[2019-10-15 17:11] LABS: SQUAMOUS EPITHELIAL CELL,UR OCC /LPF
[2019-10-15 17:12] LABS: BASO # 0.1 x10^3/uL (0.0-0.2); BASO % 1 % (0-3); EOS # 0.3 x10^3/uL (0.0-0.7); EOS % 4 % (0-3); HEMATOCRIT 42.7 % (39.0-53.0); HEMOGLOBIN 14.2 g/dL (13.0-17.5); LYMPH # 2.5 x10^3/uL (1.0-4.8); LYMPH % 37 % (24-48); MEAN CORPUSCULAR HEMOGLOBIN 30 pg (25-35); MEAN CORPUSCULAR HGB CONC 33 g/dL (31-37); MEAN CORPUSCULAR VOLUME 89 fL (79-100); MONO # 0.6 x10^3/uL (0.0-1.1); MONO % 9 % (0-9); NEUT # 3.3 x10^3uL (1.8-7.7); NEUT % 50 % (31-73); PLATELET COUNT 247 x10^3/uL (140-400); RED BLOOD COUNT 4.78 x10^6/uL (4.30-5.70); WHITE BLOOD COUNT 6.7 x10^3/uL (4.0-11.0)
[2019-10-15 17:23] LABS: ALBUMIN 4.3 g/dL (3.4-5.0); ALBUMIN/GLOBULIN RATIO 1.3 (1.0-1.7); CALCIUM 8.5 mg/dL (8.5-10.1); CREATININE 0.8 mg/dL (0.7-1.3); GFR 124.5; POTASSIUM 3.7 mmol/L (3.5-5.1); TOTAL BILIRUBIN 0.2 mg/dL (0.2-1.0); TOTAL PROTEIN 7.5 g/dL (6.4-8.2)
== END 2019-10-15 18:02 | disposition home or self-care (01) ==
LOC: ER 16:18
DX: R10.9 Unspecified abdominal pain (principal); R11.0 Nausea; R19.7 Diarrhea, unspecified; G43.909 Migraine, unspecified, not intractable, without status migrainosus; F17.200 Nicotine dependence, unspecified, uncomplicated; Z87.442 Personal history of urinary calculi; Z86.73 Personal history of transient ischemic attack (TIA), and cerebral infarction without residual deficits; Z90.89 Acquired absence of other organs; Z90.49 Acquired absence of other specified parts of digestive tract; Z88.5 Allergy status to narcotic agent; Z91.040 Latex allergy status; Z88.4 Allergy status to anesthetic agent; Z88.8 Allergy status to other drugs, medicaments and biological substances
CPT/HCPCS: 36415; 74176; 80053; 81001; 83690; 85025; 96360; 99285-25; J7030

== ENCOUNTER → 2019-11-17 | Outpatient (CLI) | payer OTHER ==
--- NOTE | 2019-11-17 15:37 | RAD ---
SMALL BOWEL SERIES Clinical Indication: RUQ PAIN/GAS/BLOATING. Abdominal pain. Diarrhea. Nausea vomiting. Comparison: CT October 15, 2019 Findings: The bridge leverman image demonstrates a nonobstructive bowel gas pattern. Moderate colonic stool. Surgical clips right upper quadrant. The 0 minute image demonstrates contrast opacification of the duodenum which appears normal in position. 20 minute image demonstrates opacification of normal caliber jejunal bowel loops. Multiple digital images were obtained at 20 minute intervals demonstrating progression of contrast through the small bowel. Normal caliber small bowel loops throughout with normal morphology. No evidence of stricture or obstruction. Contrast was retained within the distal small bowel with contrast opacification of the cecum at 360 minutes. Fluoroscopy was not performed. IMPRESSION: 1. Delayed transit of oral contrast through the small bowel with opacification of the colon at 6 hours. No evidence of small bowel stricture or obstructing lesion. Electronically signed by: David Eckert DO (11/17/2019 3:34 PM) [id number]
== END | disposition home or self-care (01) ==
LOC: RAD 08:13
PROVIDERS: ATTEND Internal Medicine Gastroenterology
DX: R19.7 Diarrhea, unspecified (principal); R10.9 Unspecified abdominal pain; Z87.19 Personal history of other diseases of the digestive system
CPT/HCPCS: 74250

== ENCOUNTER 2020-03-30 23:26 | Emergency (ER) | payer OTHER ==
[~2020-03-30] VITALS: Ht 180.3 cm; Wt 160.0 kg
[2020-03-30 23:26] VITALS: BP 161/80
[2020-03-31] MEDS ORDERED: CYCL-331 PO (00:05)
--- NOTE | 2020-03-31 00:05 | PHYS DOC ---
Past History Past Medical History: IBS, Kidney Stones, Migraines, TIA, Other Additional Past Medical Histor: GASTRIC ULCERS Past Surgical History: Appendectomy, Cholecystectomy Smoking: Less than 1pk/day Alcohol Use: None Drug Use: None General Adult EDM: Chief Complaint: MECHANICAL FALL HPI: HPI: 19-year-old male presents with back pain. The patient slipped and fell yesterday and landed on his buttocks and back. He now has pain from his mid thoracic's down to his lumbar. He has tried heat but it continues to hurt. He cannot take NSAIDs due to Crohn's disease. He is already on 20 mg a day of prednisone. He has tried Tylenol. He denies numbness, tingling, or altered sensation. He has no other injuries or complaints at this time. Review of Systems: Review of Systems: Constitutional: Denies fever or chills Eyes: Denies change in visual acuity HENT: Denies nasal congestion or sore throat Respiratory: Denies cough or shortness of breath Cardiovascular: Denies chest pain or edema GI: Denies abdominal pain, nausea, vomiting, bloody stools or diarrhea : Denies dysuria Musculoskeletal: Back pain Integument: Denies rash Neurologic: Denies headache, focal weakness or sensory changes Endocrine: Denies polyuria or polydipsia Lymphatic: Denies swollen glands Psychiatric: Denies depression or anxiety Heart Score: Risk Factors: Risk Factors: DM, Current or recent (<one month) smoker, HTN, HLP, family history of CAD, obesity. Risk Scores: Score 0 - 3: 2.5% MACE over next 6 weeks - Discharge Home Score 4 - 6: 20.3% MACE over next 6 weeks - Admit for Clinical Observation Score 7 - 10: 72.7% MACE over next 6 weeks - Early Invasive Strategies Allergies: Allergies: Allergies Coded Allergies Type Severity Reaction Last Updated Verified fentanyl Allergy Unknown 05/12/18 Yes hydrocodone Allergy Unknown 05/12/18 Yes latex Allergy Unknown 05/12/18 Yes lidocaine Allergy Unknown 05/12/18 Yes morphine Allergy Unknown 05/12/18 Yes Physical Exam: PE: Constitutional: Well developed, well nourished, no acute distress, non-toxic appearance. [] HENT: Normocephalic, atraumatic, bilateral external ears normal, oropharynx moist, no oral exudates, nose normal. [] Eyes: PERRLA, EOMI, conjunctiva normal, no discharge. [] Neck: Normal range of motion, no tenderness, supple, no stridor. [] Cardiovascular:Heart rate regular rhythm, no murmur [] Lungs & Thorax: Bilateral breath sounds clear to auscultation [] Abdomen: Bowel sounds normal, soft, no tenderness, no masses, no pulsatile masses. [] Skin: Warm, dry, no erythema, no rash. [] Back: Paraspinal muscle spasm worse on the left in the lower thoracic's and lumbar. [] Extremities: No tenderness, no cyanosis, no clubbing, ROM intact, no edema. [] Neurologic: Alert and oriented X 3, normal motor function, normal sensory function, no focal deficits noted. [] Psychologic: Affect normal, judgement normal, mood normal. [] EKG: EKG: [] Radiology/Procedures: Radiology/Procedures: [] Course & Med Decision Making: Course & Med Decision Making Pertinent Labs and Imaging studies reviewed. (See chart for details) I believe the patient is has reflex muscle spasm from back strain. I will give him a Flexeril 10 mg in the ED and a prescription for them at home. I have also advised that he not use heat, but use ice for the next couple of days. He should improve quickly. He is stable for discharge at this time. [] Lor Disclaimer: Lor Disclaimer: This electronic medical record was generated, in whole or in part, using a voice recognition dictation system. Departure Departure: Impression: Primary Impression: Fall from slip, trip, or stumble Qualified Codes: W01.0XXA - Fall on same level from slipping, tripping and stumbling without subsequent striking against object, initial encounter Additional Impressions: Strain of thoracic back region Acute lumbar myofascial strain Qualified Codes: S39.012A - Strain of muscle, fascia and tendon of lower back, initial encounter Disposition: 01 HOME/RESIDENCE PRIOR TO ADM Condition: STABLE Referrals: KERA FRITZ (PCP) Patient Instructions: Low Back Strain with [facility] Scripts Cyclobenzaprine Hcl (CYCLOBENZAPRINE HCL) 10 Mg Tablet 1 TAB PO TID PRN for MUSCLE SPASMS, #30 TAB Prov: MIRLANDE LITTLE DO 03/31/20 MIRLANDE LITTLE DO March 31, 2020 00:05
[2020-03-31] MEDS ORDERED: CYCLOBENZAPRINE 10 MG TABLET. PO ONE (00:30)
== END 2020-03-31 00:20 | disposition home or self-care (01) ==
LOC: ER 23:26
DX: S29.012A Strain of muscle and tendon of back wall of thorax, initial encounter (principal); S39.012A Strain of muscle, fascia and tendon of lower back, initial encounter; K52.89 Other specified noninfective gastroenteritis and colitis; G43.909 Migraine, unspecified, not intractable, without status migrainosus; F17.200 Nicotine dependence, unspecified, uncomplicated; Z87.442 Personal history of urinary calculi; Z86.73 Personal history of transient ischemic attack (TIA), and cerebral infarction without residual deficits; Z90.49 Acquired absence of other specified parts of digestive tract; Z90.89 Acquired absence of other organs; Z88.5 Allergy status to narcotic agent; Z91.040 Latex allergy status; Z88.4 Allergy status to anesthetic agent; Z88.8 Allergy status to other drugs, medicaments and biological substances; W01.0XXA Fall on same level from slipping, tripping and stumbling without subsequent striking against object, initial encounter; Y93.89 Activity, other specified; Y92.89 Other specified places as the place of occurrence of the external cause; Y99.8 Other external cause status
CPT/HCPCS: 99283

== ENCOUNTER → 2020-07-06 | Outpatient (CLI) | payer OTHER ==
[~2020-07-06] MED LIST changes: +CYCL-331 PO
[2020-07-06 15:36] LABS: BASO % 1 % (0-3); EOS % 0 % (0-3); HEMOGLOBIN 14.9 g/dL (13.0-17.5); LYMPH % 11 % (24-48); MEAN CORPUSCULAR HEMOGLOBIN 30 pg (25-35); MEAN CORPUSCULAR HGB CONC 34 g/dL (31-37); MEAN CORPUSCULAR VOLUME 90 fL (79-100); MONO # 0.2 x10^3/uL (0.0-1.1); MONO % 3 % (0-9); NEUT # 7.9 x10^3uL (1.8-7.7); NEUT % 86 % (31-73); PLATELET COUNT 250 x10^3/uL (140-400); RED BLOOD COUNT 4.91 x10^6/uL (4.30-5.70); RED CELL DISTRIBUTION WIDTH 13.7 % (11.5-14.5); WHITE BLOOD COUNT 9.3 x10^3/uL (4.0-11.0)
[2020-07-06 15:41] LABS: ALBUMIN 4.3 g/dL (3.4-5.0); ALBUMIN/GLOBULIN RATIO 1.3 (1.0-1.7); CALCIUM 9.3 mg/dL (8.5-10.1); GFR 95.3; POTASSIUM 4.2 mmol/L (3.5-5.1); TOTAL BILIRUBIN 0.3 mg/dL (0.2-1.0); TOTAL PROTEIN 7.5 g/dL (6.4-8.2)
[2020-07-06 16:43] LABS: % BASOS 1 % (0-3); % LYMPHS 8 % (24-48); % MONOS 5 % (0-10); % SEGS 86 % (35-66); PLT ESTIMATE ADEQUATE (ADEQUATE)
== END | disposition home or self-care (01) ==
LOC: LAB 14:38
PROVIDERS: ATTEND Internal Medicine Gastroenterology
DX: K50.10 Crohn's disease of large intestine without complications (principal)
CPT/HCPCS: 36415; 80053; 85007; 85025; 86706; 87340

== ENCOUNTER 2020-09-26 14:26 | Emergency (ER) | payer OTHER ==
[~2020-09-26] VITALS: Ht 180.3 cm; Wt 72.7 kg
--- NOTE | 2020-09-26 15:32 | PHYS DOC ---
Past History Past Medical History: IBS, Kidney Stones, Migraines, TIA, Other Additional Past Medical Histor: GASTRIC ULCERS; CROHN'S DISEASE (FLAQUITA DURON APRN) Past Surgical History: Appendectomy, Cholecystectomy (FLAQUITA DURON APRN) Smoking: Less than 1pk/day Alcohol Use: None Drug Use: None (FLAQUITA DURON APRN) Adult General Chief Complaint Chief Complaint: BACK INJURY HPI HPI Patient is a 19-year-old male patient who presents to the ED today complaining of a throbbing 7 out of 10 bilateral mid back pain that began 2 weeks ago after he slipped and fell. Patient states he was working on his vehicle and slipped on a wrench falling down. Denies any loss of consciousness. He states his been trying to take Tylenol for his pain with no relief. He states his pain is worse on movement. He states nothing specifically has been able to relieve the pain. (FLAQUITA DURON APRN) Review of Systems Review of Systems Constitutional: Denies fever or chills [] Eyes: Denies change in visual acuity, redness, or eye pain [] HENT: Denies nasal congestion or sore throat [] Respiratory: Denies cough or shortness of breath [] Cardiovascular: No additional information not addressed in HPI [] GI: Denies abdominal pain, nausea, vomiting, bloody stools or diarrhea [] : Denies dysuria or hematuria [] Musculoskeletal: Reports mid back pain Integument: Denies rash or skin lesions [] Neurologic: Denies headache, focal weakness or sensory changes [] All other systems were reviewed and found to be within normal limits, except as documented in this note. (FLAQUITA DURON APRN) Allergies Allergies Allergies Coded Allergies Type Severity Reaction Last Updated Verified fentanyl Allergy Unknown 05/12/18 Yes hydrocodone Allergy Unknown 05/12/18 Yes latex Allergy Unknown 05/12/18 Yes lidocaine Allergy Unknown 05/12/18 Yes morphine Allergy Unknown 05/12/18 Yes (FLAQUITA DURON APRN) Physical Exam Physical Exam Constitutional: Well developed, well nourished, no acute distress, non-toxic appearance. [] HENT: Normocephalic, atraumatic, bilateral external ears normal, oropharynx moist, no oral exudates, nose normal. [] Eyes: PERRLA, EOMI, conjunctiva normal, no discharge. [] Neck: Normal range of motion, no tenderness, supple, no stridor. [] Cardiovascular:Heart rate regular rhythm, no murmur [] Lungs & Thorax: Bilateral breath sounds clear to auscultation [] Abdomen: Bowel sounds normal, soft, no tenderness, no masses, no pulsatile masses. [] Skin: Warm, dry, no erythema, no rash. [] Back: Diffuse paraspinal muscle tenderness to bilateral thoracic spine, no midline thoracic spine tenderness, no CVA tenderness. [] Extremities: No tenderness, no cyanosis, no clubbing, ROM intact, no edema. [] Neurologic: Alert and oriented X 3, normal motor function, normal sensory function, no focal deficits noted. [] Psychologic: Affect normal, judgement normal, mood normal. [] (FLAQUITA DURON APRN) Current Patient Data Vital Signs Vital Signs Date Time Temp Pulse Resp B/P (MAP) Pulse Ox O2 Delivery O2 Flow Rate FiO2 09/26/20 14:33 98.7 97 18 133/65 (87) 99 Room Air (FLAQUITA DURON APRN) EKG EKG [] (FLAQUITA DURON APRN) Radiology/Procedures Radiology/Procedures []PROCEDURE: THORACIC SPINE 3V Examination: THORACIC SPINE 3V History: Reason: pain fell 2 weeks ago / Spl. Instructions: / History: Comparison/Correlation: None Findings: Total 3 images of the thoracic spine were obtained. Minimal levo convexity lower thoracic spine. Vertebral body heights and disc spaces are adequate. No acute fracture or bone destruction. No appreciable degenerative change. Soft tissues are unremarkable. Right upper quadrant surgical clips are present. Impression: No suspicious process. Electronically signed by: Julian Felix MD (09/26/2020 3:57 PM) [facility] DICTATED AND SIGNED BY: JULIAN FELIX MD DATE: 09/26/20 [id number] CC: KERA FRITZ; FLAQUITA DURON APRN ~ (FLAQUITA DURON APRN) Heart Score Risk Factors: Risk Factors: DM, Current or recent (<one month) smoker, HTN, HLP, family history of CAD, obesity. Risk Scores: Risk Factors: DM, Current or recent (<one month) smoker, HTN, HLP, family history of CAD, obesity. (FLAQUITA DURON APRN) Course & Med Decision Making Course & Med Decision Making Pertinent Labs and Imaging studies reviewed. (See chart for details) This is a 19-year-old male patient presented to the ED today complaining of mid back pain status post falling 2 weeks ago. Thoracic spine x-rays interpreted by radiologist are negative for any acute findings. Patient was discharged to home. Ice elevation encouraged. Given prescription for diclofenac, Medrol Dosepak and cyclobenzaprine. (FLAQUITA DURON APRN) Course & Med Decision Making I have participated in the care of this patient and I have reviewed and agree with all pertinent clinical information above including history, exam, and recommendations. (HUGO GUY MD) Dragon Disclaimer Dragon Disclaimer This electronic medical record was generated, in whole or in part, using a voice recognition dictation system. (FLAQUITA DURON APRN) Departure Departure: Impression: Primary Impression: Acute thoracic back pain Additional Impression: Fall Disposition: 01 DC HOME SELF CARE/HOMELESS Condition: STABLE Referrals: KERA FRITZ (PCP) follow up in 1-2 weeks Patient Instructions: Back Exercises, [id number], Back Pain, Adult, [id number] Additional Instructions: You were evaluated in the emergency room for mid back pain. Your x-rays of thoracic spine/mid back were negative for any acute findings. Take the presc ribed medications as ordered. Follow-up with the provided neurosurgeon in [address] Sher Ruvalcaba [address] [place] [address] Scripts Methylprednisolone (MEDROL) 4 Mg Tab.ds.pk 1 PKG PO UD, #1 PKG Prov: FLAQUITA DURON APRN 09/26/20 Cyclobenzaprine Hcl (CYCLOBENZAPRINE HCL) 10 Mg Tablet 1 TAB PO TID, #30 TAB Prov: FLAQUITA DURON APRN 09/26/20 Diclofenac Potassium (DICLOFENAC POTASSIUM) 50 Mg Tablet 1 TAB PO BID, #20 TAB 1 Refill Prov: FLAQUITA DURON APRN 09/26/20 Problem Qualifiers Primary Impression: Acute thoracic back pain Back pain laterality: bilateral Qualified Codes: M54.6 - Pain in thoracic spine Additional Impression: Fall Encounter type: initial encounter Qualified Codes: W19.XXXA - Unspecified fall, initial encounter FLAQUITA DURNO APRN Sep 26, 2020 15:32 HUGO GUY MD Sep 26, 2020 16:11
--- NOTE | 2020-09-26 16:00 | RAD ---
Examination: THORACIC SPINE 3V History: Reason: pain fell 2 weeks ago / Spl. Instructions: / History: Comparison/Correlation: None Findings: Total 3 images of the thoracic spine were obtained. Minimal levo convexity lower thoracic spine. Vertebral body heights and disc spaces are adequate. No acute fracture or bone destruction. No appreciable degenerative change. Soft tissues are unremarkable. Right upper quadrant surgical clips are present. Impression: No suspicious process. Electronically signed by: Julian Zapata MD (09/26/2020 3:57 PM) [facility]
[2020-09-26] MEDS ORDERED: DICL50TA2 PO (16:10)
[2020-09-26] MEDS ORDERED: METH4TAB2 PO (16:10)
[2020-09-26] MEDS ORDERED: CYCL-331 PO (16:10)
[2020-09-26 16:26] VITALS: BP 122/71
== END 2020-09-26 16:26 | disposition home or self-care (01) ==
LOC: ER 14:26
DX: M54.6 Pain in thoracic spine (principal); K58.9 Irritable bowel syndrome, unspecified; F17.200 Nicotine dependence, unspecified, uncomplicated; G43.909 Migraine, unspecified, not intractable, without status migrainosus; Z87.442 Personal history of urinary calculi; Z86.73 Personal history of transient ischemic attack (TIA), and cerebral infarction without residual deficits; Z88.8 Allergy status to other drugs, medicaments and biological substances; Z88.5 Allergy status to narcotic agent; Z91.040 Latex allergy status; Z88.4 Allergy status to anesthetic agent; W01.0XXA Fall on same level from slipping, tripping and stumbling without subsequent striking against object, initial encounter; Y93.89 Activity, other specified; Y92.89 Other specified places as the place of occurrence of the external cause; Y99.8 Other external cause status
CPT/HCPCS: 72072; 99283